=== PATIENT | female | born 1990 | race Caucasian/White ===

== ENCOUNTER 2020-09-01 19:14 | Emergency (ER) | payer OTHER, SELFPAY ==
[2020-09-01 19:15] VITALS: BP 149/96; PULSE 110; RESP 18; TEMP 36.5; O2SAT 100
--- NOTE | 2020-09-01 19:55 | ED.WOUNDLAC ---
HPI - Wound/Laceration General Chief Complaint: Wound/Laceration Stated Complaint: laceration to right hand Time Seen by Provider: 09/01/20 19:31 Source: patient Mode of arrival: ambulatory Limitations: no limitations History of Present Illness HPI narrative: This is a 30 year old female that presents to the ER for lacerations sustained just prior to arrival. Reports a picture frame fell off the wall and she tried to catch it. Reports sustaining lacerations to her right hand. Denies decreased ROM or numbness. Related Data Allergies Allergy/AdvReac Type Severity Reaction Status Date / Time No Known Allergies Allergy Verified 09/01/20 21:06 Review of Systems Review of Systems: Narrative: CONSTITUTIONAL: Denies fever SKIN: Reports laceration MUSCULOSKELETAL: Denies joint pain, or myalgia. NEUROLOGIC: Denies numbness All systems reviewed & are unremarkable except as noted in HPI and below PMFSH Past Medical History Medical History (Updated 09/01/20 @ 21:06 by Laura Morelos PA-C) No active medical problems Social History Social History (Updated 09/01/20 @ 20:01 by Laura Morelos PA-C) Substance use: never Exam Narrative: Exam Narrative: GENERAL: Well-appearing, well-nourished, and in no acute distress. HEAD: Normocephalic, atraumatic. EYES: EOMI. EXTREMITIES: Normal range of motion. No edema or obvious deformity. Several superficial lacerations to the right hand dorsal surface. Two, 1.5cm linear lacerations into subcutaneous tissue on the dorsal surface of the right hand SKIN: Warm, dry, no rash. NEURO: No focal deficits. Alert and oriented x3. PSYCH: Normal mood and affect Course Vital Signs Vital signs: Vital Signs Temperature 97.7 F 09/01/20 19:15 Pulse Rate 110 H 09/01/20 19:15 Respiratory Rate 18 09/01/20 19:15 Blood Pressure 149/96 H 09/01/20 19:15 Pulse Oximetry 100 09/01/20 19:15 Temperature 97.7 F 09/01/20 19:15 Pulse Rate 110 H 09/01/20 19:15 Respiratory Rate 18 09/01/20 19:15 Blood Pressure 149/96 H 09/01/20 19:15 Pulse Oximetry 100 09/01/20 19:15 Procedures Laceration Laceration 1: Date: 09/01/20 Time: 20:52 Site: hand Side (If applicable): right Size (cm): 1.5 Description: linear Depth: simple, single layer Local Anesthetic: lidocaine 1% Amount of anesthesia used (mL): 2 Pre-repair: wound explored and irrigated ====== Skin Level ====== Skin layer closed with: nylon Size (cm): 5-0 Number of sutures: 1 Technique: simple, interrupted ====== Subcutaneous Layer ====== ====== Muscle Layer ====== ====== Tendon Layer ====== Laceration 2: Date: 09/01/20 Time: 20:53 Site: hand Side (If applicable): right Size (cm): 1.5 Description: linear Depth: simple, single layer Local Anesthetic: lidocaine 1% Amount of anesthesia used (mL): 2 Pre-repair: wound explored and irrigated ====== Skin Level ====== Skin layer closed with: nylon Size (cm): 5-0 Number of sutures: 1 Technique: simple, interrupted ====== Subcutaneous Layer ====== ====== Muscle Layer ====== ====== Tendon Layer ====== MDM - Wound/Laceration MDM Narrative Medical decision making narrative: Patient presents to the ER for lacerations sustained just prior to arrival. She was updated on tetanus. Wounds were irrigated and explored, no evidence of foreign body. Closed with sutures. She was educated on wound care. She is to follow up with primary care doctor. She was given warnings to return to the ER Critical Care Time Critical Care Time Critical Care Time: No Discharge Plan Discharge Clinical Impression: Laceration Patient Disposition: Home, Self-Care Condition: Stable Instructions: Care For Your Stitches (ED), Laceration (ED) Additional Instructions:
[2020-09-01] MEDS: TETANUS,DIPHTHERIA,AC PERTUSSIS ADULT (0.5 ML) BOOSTRIX IM (20:02)
--- NOTE | 2020-09-01 21:28 | PC.NURSE ---
antibotic ointment applied and wound dressed with magalys
== END 2020-09-01 21:30 | disposition home or self-care (01) ==
PROVIDERS: Emergency Provider Emergency Medicine
DX: S61.411A Laceration without foreign body of right hand, initial encounter (principal); Z23 Encounter for immunization; W20.8XXA Other cause of strike by thrown, projected or falling object, initial encounter
CPT/HCPCS: 12002; 90471; 90715; 99282